=== PATIENT | female | born 1970 | race Caucasian/White ===

== ENCOUNTER 2023-08-12 22:27 | Emergency (ER) | payer BC ==
[2023-08-12] MEDS ORDERED: Albuterol/Ipratropium 3.0-0.5 MG/3 ML Neb Soln ONE (22:29)
[2023-08-12] MEDS ORDERED: predniSONE 20 MG Tab PO ONE (22:55)
[2023-08-12] MEDS ORDERED: Albuterol/Ipratropium 3.0-0.5 MG/3 ML Neb Soln NEB ONE (22:59)
== END 2023-08-13 00:31 | disposition home or self-care (01) ==
LOC: MW.ED 22:27
DX: J45.901 Unspecified asthma with (acute) exacerbation (principal); Z88.2 Allergy status to sulfonamides
CPT/HCPCS: 99284; A9270; 99283; J7620-GY